=== PATIENT | female | born 1970 | race Caucasian/White ===

== ENCOUNTER 2016-10-18 23:00 | Emergency (ER) | payer OTHER ==
[~2016-10-18] VITALS: Wt 70.3 kg
[2016-10-18] MEDS ORDERED: ESCITALOPRAM OX10 MG PO (23:05)
[2016-10-19] MEDS ORDERED: CRUTCHES (00:31)
== END 2016-10-19 00:51 | disposition home or self-care (01) ==
LOC: ED 23:00
DX: S96.911A Strain of unspecified muscle and tendon at ankle and foot level, right foot, initial encounter (principal); Z79.899 Other long term (current) drug therapy; F17.200 Nicotine dependence, unspecified, uncomplicated; W01.0XXA Fall on same level from slipping, tripping and stumbling without subsequent striking against object, initial encounter; Y93.01 Activity, walking, marching and hiking; Y92.89 Other specified places as the place of occurrence of the external cause; Y99.8 Other external cause status